=== PATIENT | female | born 1980 | race Caucasian/White ===

== ENCOUNTER 2017-09-16 16:46 | Emergency (ER) | payer OTHER, MEDICAID ==
[2017-09-16] MEDS ORDERED: IOPAMIDOL-300 100 ML VIAL IVP ONE ×2 (16:47→19:29)
[2017-09-16] MEDS ORDERED: HYDROcod/ACETAM 5/325 MG TABLET PO STA (17:30)
--- NOTE | 2017-09-16 17:32 | ED Physician Documentation ---
PD HPI HEADACHE - Stated complaint Stated Complaint: HEADACHE/CONFUSED/CANT WALK - Chief complaint Chief Complaint: Neuro - History obtained from History obtained from: Patient - History of Present Illness Timing - onset: Other (3 nights ago she got up from the table and was feeling dizzy and then passed out hitting the back of her head on the table. She has had increasing frontal headaches ever since with mild confusion and feeling like she is off balance and difficulty with certain tasks.) Review of Systems Constitutional: denies: Fever, Chills Nose: denies: Congestion, Epistaxis, Foreign Body GI: reports: Nausea. 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, Tubal ligation HEENT: Other - Present Medications Home Medications: Ambulatory Orders Medication Instructions Recorded Confirmed Amitriptyline HCl 225 mg PO DAILY 09/08/15 09/08/15 Levothyroxine [Synthroid] 100 mcg PO QDAC 09/08/15 09/08/15 Duloxetine HCl [Cymbalta] 60 mg PO 09/16/17 Risperidone [Risperdal] 2 mg PO 09/16/17 - Allergies Allergies/Adverse Reactions: Allergies Allergy/AdvReac Type Severity Reaction Status Date / Time No Known Drug Allergies Allergy Verified 09/08/15 20:17 - Social History Does the pt smoke?: Yes Smoking Status: Current some day smoker - Immunizations Immunizations are current?: Yes PD ED PE NORMAL - Vitals Vital signs reviewed: Yes - General General: Alert and oriented X 3, No acute distress - HEENT HEENT: PERRL, EOMI - Neck Neck: Supple, no meningeal sign, No bony TTP - Cardiac Cardiac: RRR, No murmur - Respiratory Respiratory: No respiratory distress, Clear bilaterally - Abdomen Abdomen: Normal bowel sounds, Soft, Non tender - Neuro Neuro: Alert and oriented X 3, Other (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 She is slightly diminished sensation on the right leg but not R arm) Eye Opening: Spontaneous Motor: Obeys Commands Verbal: Oriented GCS Score: 15 Results - Vitals Vitals: Vital Signs - 24 hr 09/16/17 16:50 Temperature 36.4 C L Heart Rate 111 H Respiratory 18 Rate Blood Pressure 143/93 H O2 Saturation 96 Oxygen O2 Source Room air - Labs Labs: Laboratory Tests 09/16/17 09/16/17 19:31 19:31 WBC 10.7 RBC 4.23 Hgb 11.3 L Hct 34.9 L MCV 82.4 MCH 26.6 L MCHC 32.3 RDW 14.9 Plt Count 285 MPV 8.2 Neut # Not Reportable Lymph # Not Reportable [place] # Not Reportable Eos # Not Reportable Baso # Not Reportable Absolute Nucleated RBC Not Reportable Total Counted 100 Band Neuts % (Manual) 10 Abnorm Lymph % (Manual) 0 Nucleated RBC % Not Reportable Neutrophils # (Manual) 6.3 Lymphocytes # (Manual) 2.5 Monocytes # (Manual) 0.4 Eosinophils # (Manual) 1.5 H Basophils # (Manual) 0.0 Differential Comment MANUAL DIFFERENTIAL WBC Morphology NORMAL APPEARANCE Platelet Estimate NORMAL (130-450,000) Platelet Morphology NORMAL APPEARANCE RBC Morph Micro Appear 2+ STOMATOCYTES Sodium 132 L Potassium 3.8 Chloride 99 L Carbon Dioxide 27 Anion Gap 6.0 BUN 9 Creatinine 0.7 Estimated GFR (MDRD) 94 Glucose 88 Calcium 8.9 Total Bilirubin 0.5 AST 17 ALT 13 Alkaline Phosphatase 135 H Total Protein 7.3 Albumin 4.2 Globulin 3.1 Albumin/Globulin Ratio 1.4 Lipase 18 L - Rads (name of study) CT Head Radiology: EMP read contemporaneously (normal) CTA Head anc neck Radiology: EMP read contemporaneously (no vascular abnormality, esophageal polyp ) PD MEDICAL DECISION MAKING - ED course ED course: 37-year-old woman with head injury a few days ago and now postconcussive symptoms. Head CT was negative. 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 She was able to walk, but seemed to need some support veering to the right. There was some anisocoria, left slightly greater than right. So CT angiography was done to rule out dissection and this was also negative except for the incidental finding in the esophagus which was discussed with her and her . I offered to speak with a neurologist with the understanding that the likely outcome of that conversation would be to admit her for an MRI in the morning. She wanted to go home and sleep in her own bed so she was encouraged to return tomorrow if having persistent neurologic issues. Departure - Departure Disposition: 01 Home, Self Care Clinical Impression: Head injury Qualifiers: Encounter type: initial encounter Qualified Code(s): S09.90XA - Unspecified injury of head, initial encounter Headache Qualifiers: Headache type: unspecified Headache chronicity pattern: acute headache Intractability: not intractable Qualified Code(s): R51 - Headache Condition: Good Record reviewed to determine appropriate education?: Yes Instructions: ED Head Injury Closed Comments: Return tomorrow morning for reevluation if weakness is persistent Talk with your doctor about upper endoscopy given apparent esophgeal polyp seen on CT of the neck.
--- NOTE | 2017-09-16 18:03 | CT Preliminary Report ---
Exam: CT HEAD W/O IMPRESSION: Normal head CT. [facility] SITE ID: [id number]
--- NOTE | 2017-09-16 18:07 | CT Report ---
EXAM: CT HEAD EXAM DATE: 09/16/2017 05:46 PM. CLINICAL HISTORY: Head injury patient presenting with imbalance, dizziness, confusion and vomiting. COMPARISON: None. TECHNIQUE: Multiaxial CT images were obtained from the foramen magnum to the vertex. Reformats: Coron al. IV contrast: None. In accordance with CT protocol optimization, one or more of the following dose reduction techniques w ere utilized for this exam: automated exposure control, adjustment of mA and/or KV based on patient s ize, or use of iterative reconstructive technique. FINDINGS: Parenchyma: No intraparenchymal hemorrhage. No evidence of mass, midline shift, or CT findings of inf arction. Hall-white differentiation is distinct. Extraaxial Spaces: Normal for age. No subdural or epidural collections identified. Ventricles: Normal in size and position. Sinuses and Orbits: Imaged paranasal sinuses, orbits, and mastoids show no significant abnormality. Bones: No evidence of fracture or calvarial defect. Other: None. IMPRESSION: Normal head CT. [facility] Referring Provider Line: [phone] SITE ID: [id number]
[2017-09-16] MEDS ORDERED: SUMAtriptan 6 MG/0.5 ML VIAL SUBQ STA (18:24)
[2017-09-16] MEDS ORDERED: GABAPENTIN 100 MG CAPSULE PO STA (18:24)
[2017-09-16] MEDS ORDERED: IOPAMIDOL-300 100 ML VIAL ONE (19:03)
[2017-09-16 19:39] LABS: BASOPHILS % (AUTO) 0.7 %; EOSINOPHILS % (AUTO) 19.7 %; HGB - HEMOGLOBIN 11.3 g/dL (12.0-16.0); LYMPHOCYTES % (AUTO) 19.5 %; MEAN CORPUSCULAR HEMOGLOBIN 26.6 pg (27.0-31.0); MEAN CORPUSCULAR HGB CONC 32.3 g/dL (32.0-36.0); MEAN CORPUSCULAR VOLUME 82.4 fL (81.0-99.0); MEAN PLATELET VOLUME 8.2 fL (7.9-10.8); MONOCYTES % (AUTO) 5.8 %; NEUTROPHILS % (AUTO) 54.3 %; PLT - PLATELET COUNT 285 10^3/uL (130-450); RED BLOOD COUNT 4.23 10^6/uL (4.20-5.40); RED CELL DISTRIBUTION WIDTH 14.9 % (12.0-15.0); WHITE BLOOD COUNT 10.7 x10^3/uL (4.8-10.8)
[2017-09-16 19:46] LABS: ABNORMAL LYMPHS % (MANUAL) 0 %
[2017-09-16 19:50] LABS: ALBUMIN 4.2 g/dL (3.2-5.5); ALBUMIN/GLOBULIN RATIO 1.4 (1.0-2.2); BILIRUBIN,TOTAL 0.5 mg/dL (0.2-1.0); CALCIUM 8.9 mg/dL (8.5-10.3); CREATININE 0.7 mg/dL (0.4-1.0); TOTAL PROTEIN 7.3 g/dL (6.7-8.2)
--- NOTE | 2017-09-16 20:07 | CT Preliminary Report ---
Exam: CT NECK ANGIO IMPRESSION: 1. Normal CT angiogram of the extracranial circulation in the neck. No significant atherosclerotic ch jie, calcification, stenosis, or dissection. 2. Nodular hyperdense focus in the proximal thoracic esophagus. This may represent a submucosal mass. This could be further evaluated with endoscopy or esophagram. 3. Soft tissue fullness in the posterior nasopharynx and lateral oral pharynx. This suggests lymphoid tissue in the adenoids and palatine tonsils. [facility] SITE ID: [id number]
--- NOTE | 2017-09-16 20:12 | CT Report ---
EXAM: CT ANGIOGRAM NECK EXAM DATE: 09/16/2017 07:26 PM. CLINICAL HISTORY: Head injury, right side weakness. Patient hit back of head 2 days ago. Right-sided weakness. Vision changes. Nausea with emesis. COMPARISON: CT scan and CT angiogram of the head 09/16/2017. TECHNIQUE: Routine axial helical imaging was performed from the skull base through the aortic arch. R econstructions: Routine multiplanar 3D MIP reconstructions. IV Contrast: 80 mL Isovue 300. Evaluation of arterial stenosis is based on a NASCET method of measurement. In accordance with CT protocol optimization, one or more of the following dose reduction techniques w ere utilized for this exam: automated exposure control, adjustment of mA and/or KV based on patient s ize, or use of iterative reconstructive technique. FINDINGS: The visualized aortic arch is unremarkable. 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 Great vessels off the arch are patent and unremarkable. Right Carotid: The common carotid, internal carotid, and external carotid arteries are widely patent. No dissection, significant atherosclerotic plaque, or calcification identified. Left Carotid: The common carotid, internal carotid, and external carotid arteries are widely patent. No dissection, significant atherosclerotic plaque, or calcification identified. Vertebrals: The vertebrobasilar system shows no stenoses. Intracranial Circulation: Normal. No stenoses or aneurysms of the visualized vessels. Other: A nodular focus of submucosal increased density/enhancement is seen in the proximal thoracic e sophagus. This measures approximately 8 x 4 mm in size. This could represent an enhancing submucosal nodule. This could be further evaluated with esophagram or endoscopy. The visualized upper lung zones are clear. The muscle and fascial planes of the neck are unremarkable. No lytic or blastic bony lesions are seen. No significant cervical spondylosis. The patient is noted to be edentulous. Anterior subluxation of the mandibular condyle is seen at the TMJ bilaterally. Soft tissue prominence is seen in the posterior nasopharynx and lateral oral pharynx, consistent with lymphoid tissue in the tonsils and adenoids. IMPRESSION: 1. Normal CT angiogram of the extracranial circulation in the neck. No significant atherosclerotic ch jie, calcification, stenosis, or dissection. 2. Nodular hyperdense focus in the proximal thoracic esophagus. This may represent a submucosal mass. This could be further evaluated with endoscopy or esophagram. 3. Soft tissue fullness in the posterior nasopharynx and lateral oral pharynx. This suggests lymphoid tissue in the adenoids and palatine tonsils. [facility] Referring Provider Line: [phone] SITE ID: [id number]
--- NOTE | 2017-09-16 20:12 | CT Preliminary Report ---
Exam: CT HEAD ANGIO IMPRESSION: CT Head with contrast: 1. No abnormal intracranial enhancement. 2. No acute abnormality. CTA Head: 1. Normal CTA of the head. No significant vascular stenosis, dissection, or aneurysm. [facility] SITE ID: [id number]
[2017-09-16 20:16] LABS: BAND NEUTROPHILS % (MANUAL) 10 %; EOSINOPHILS # (MANUAL) 1.5 10^3/uL (0-0.7); LYMPHOCYTES # (MANUAL) 2.5 10^3/uL (1.5-3.5); LYMPHOCYTES % (MANUAL) 23 %; MONOCYTES # (MANUAL) 0.4 10^3/uL (0.0-1.0); NEUTROPHILS # (MANUAL) 6.3 10^3/uL (1.5-6.6); NEUTROPHILS % (MANUAL) 49 %; PLATELET ESTIMATE, MANUAL NORMAL (130-450,000) (NORMAL); PLATELET MORPHOLOGY NORMAL APPEARANCE (NORMAL); RBC MORPHOLOGY (MULTIPLE) 2+ STOMATOCYTES (NORMAL)
[2017-09-16 20:17] LABS: DIFFERENTIAL COMMENT MANUAL DIFFERENTIAL
--- NOTE | 2017-09-16 20:27 | CT Report ---
EXAM: CT ANGIOGRAM HEAD. CT SCAN OF THE HEAD WITH CONTRAST. EXAM DATE: 09/16/2017 07:25 PM CLINICAL HISTORY: Head injury, right-side weakness. Patient hit back of head 2 days ago. Right-sided weakness. Vision changes. Nausea with emesis. COMPARISON: CT scan of the head without contrast earlier in the evening 09/16/2017. CT angiogram of t he neck 09/16/2017. TECHNIQUE: - CT Scan Head: Using a multidetector scanner, axial images were acquired from the foramen magnum to the skull vertex following contrast administration. - CT Angiogram: Using a multidetector scanner, high-resolution axial images were acquired from the sk ull base through vertex following rapid infusion of intravenous contrast. Reformats: Multiplanar MIP reformats were reconstructed. Nascet criteria used for stenosis measurement. IV Contrast: 80 mL Isovue 300. In accordance with CT protocol optimization, one or more of the following dose reduction techniques w ere utilized for this exam: automated exposure control, adjustment of mA and/or KV based on patient s ize, or use of iterative reconstructive technique. FINDINGS: POST-CONTRAST HEAD: No abnormal intracranial enhancement. No intracranial mass or hemorrhage. The ventricles, sulci, and cisterns are unremarkable. CT ANGIOGRAM HEAD: RIGHT: Internal Carotid artery: No evidence of dissection. No evidence of aneurysm along the intracranial IC A. Anterior Cerebral Artery: Patent without significant stenosis, aneurysm, or vascular malformation. Middle Cerebral Artery: Patent without significant stenosis, aneurysm, or vascular malformation. Posterior Cerebral Artery: Patent without significant stenosis, aneurysm, or vascular malformation. Posterior Communicating Artery: Patent. No aneurysm. Vertebral Artery: Patent without significant stenosis. No evidence of dissection. LEFT: Internal Carotid artery: No evidence of dissection. No evidence of aneurysm along the intracranial IC A. Anterior Cerebral Artery: Patent without significant stenosis, aneurysm, or vascular malformation. Middle Cerebral Artery: Patent without significant stenosis, aneurysm, or vascular malformation. Posterior Cerebral Artery: Patent without significant stenosis, aneurysm, or vascular malformation. Posterior Communicating Artery: Patent. No aneurysm. Vertebral Artery: Patent without significant stenosis. No evidence of dissection. CENTRAL: Anterior Communicating Artery: Patent. No aneurysm. Basilar Artery: Patent without significant stenosis. No aneurysm. DURAL VENOUS SINUSES AND MAJOR CENTRAL VEINS: Patent. IMPRESSION: CT Head With Contrast: 1. No abnormal intracranial enhancement. 2. No acute abnormality. CTA Head: 1. Normal CTA of the head. No significant vascular stenosis, dissection, or aneurysm. [facility] Referring Provider Line: [phone] SITE ID: [id number]
[2017-09-16] MEDS ORDERED: METOCLOPRAMIDE 10 MG/2 ML VIAL IVP STA (20:43)
[2017-09-16] MEDS ORDERED: diphenhydrAMINE INJ 50 MG/ML VIAL IVP STA (20:43)
[2017-09-16 21:24] VITALS: BP 129/87
== END 2017-09-16 21:17 | disposition home or self-care (01) ==
LOC: ED 16:46
DX: S09.90XA Unspecified injury of head, initial encounter (principal); W18.30XA Fall on same level, unspecified, initial encounter; W22.8XXA Striking against or struck by other objects, initial encounter; R51 Headache; E03.9 Hypothyroidism, unspecified; F17.200 Nicotine dependence, unspecified, uncomplicated
CPT/HCPCS: 36415; 70450; 70496; 70498; 80053; 83690; 85025; 96372; 96374; 99283; 99284; A9270; J1200; J2765; Q9967

== ENCOUNTER 2019-10-31 01:37 | Emergency (ER) | payer MEDICAID, OTHER ==
--- NOTE | 2019-10-31 01:49 | ED Physician Documentation ---
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 HEENT: Other - Present Medications Home Medications: Ambulatory Orders Medication Instructions Recorded Confirmed Amitriptyline HCl 225 mg PO DAILY 09/08/15 09/08/15 Levothyroxine [Synthroid] 100 mcg PO QDAC 09/08/15 09/08/15 Duloxetine HCl [Cymbalta] 60 mg PO 09/16/17 Risperidone [Risperdal] 2 mg PO 09/16/17 - Allergies Allergies/Adverse Reactions: Allergies Allergy/AdvReac Type Severity Reaction Status Date / Time No Known Drug Allergies Allergy Verified 09/08/15 20:17 - Social History Does the pt smoke?: Yes Smoking Status: Current some day smoker Does the pt drink ETOH?: No Does the pt have substance abuse?: No - Immunizations Immunizations are current?: Yes Results - Vitals Vitals: Oxygen O2 Source Room air
--- NOTE | 2019-10-31 01:59 | ED Physician Documentation ---
History of Present Illness - Stated complaint Stated Complaint: LT WRIST LAC/SI - History obtained from History obtained from: Patient - History of Present Illness Timing: Today Improved by: no ameliorating factors Worsened by: no exacerbating factors - Additonal information Additional information: c/o increasing anxiety throughout the day today, no specific inciting event. she says she has had similar episodes in the past which have been controlled with PRN lorazepam but todays episode has not responded to this medication. she used a piece of broken glass to lacerate her left wrist but she denies suicidal ideation on my HPI. Review of Systems Cardiac: reports: Reviewed and negative Skin: reports: Laceration (s) Musculoskeletal: denies: Extremity pain, Extremity swelling Neurologic: denies: Focal weakness, Numbness Psychiatric: reports: Anxiety. 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 HEENT: Other - Present Medications Home Medications: Ambulatory Orders Medication Instructions Recorded Confirmed Amitriptyline HCl 225 mg PO DAILY 09/08/15 09/08/15 Levothyroxine [Synthroid] 100 mcg PO QDAC 09/08/15 09/08/15 Duloxetine HCl [Cymbalta] 60 mg PO 09/16/17 Risperidone [Risperdal] 2 mg PO 09/16/17 - Allergies Allergies/Adverse Reactions: Allergies Allergy/AdvReac Type Severity Reaction Status Date / Time No Known Drug Allergies Allergy Verified 10/31/19 02:00 - Social History Does the pt smoke?: Yes Smoking Status: Current some day smoker Does the pt drink ETOH?: No Does the pt have substance abuse?: No - Immunizations Immunizations are current?: Yes PD ED PE NORMAL - Vitals Vital signs reviewed: Yes - General General: Alert and oriented X 3, Well developed/nourished, Other (appears anxious) - Cardiac Cardiac: No murmur - Respiratory Respiratory: No respiratory distress, Clear bilaterally - Neuro Neuro: Alert and oriented X 3, No motor deficit, No sensory deficit PD ED PE EXPANDED - Cardiac Cardiac: Tachy, Regular Rhythm - Extremities RONALDO UE/Hands Visual: 1 - laceration (superficial 1 cm linear laceration) - Psych Psych: Tearful, Anxious Results - Vitals Vitals: Vital Signs - 24 hr 10/31/19 10/31/19 03:39 03:42 Temperature 37.1 C Heart Rate 82 Respiratory 17 22 Rate Blood Pressure 151/106 H O2 Saturation 96 Oxygen O2 Source Room air PD MEDICAL DECISION MAKING - ED course Complexity details: re-evaluated patient, considered differential, d/w patient ED course: patient strongly denies suicidal intent on my HPI and declines SW and telepsych services. she says she is working with her PMD regarding her increasingly frequent anxiety episodes. given IM valium followed by PO lorazepam; patient reports decreased anxiety and requests discharge home. she says she feels safe going home and that she will call 911 if she becomes overwhelmed by anxiety or has thoughts of self-harm. Departure - Departure Disposition: 01 Home, Self Care Clinical Impression: Anxiety, Laceration of left wrist Condition: Good Instructions: ED Laceration Ext Skin Glue, ED Panic Attack Follow-Up: Miranda Chatman DO [Primary Care Provider] - Within 1 week Discharge Date/Time: 10/31/19 03:50
[2019-10-31] MEDS: diazePAM INJ 5 MG/ML SYRINGE IM STA (02:18)
[2019-10-31] MEDS: LORazepam 1 MG TABLET PO STA (03:23)
[2019-10-31 03:42] VITALS: BP 151/106
== END 2019-10-31 03:50 | disposition home or self-care (01) ==
LOC: ED 01:37
DX: F41.9 Anxiety disorder, unspecified (principal); S61.512A Laceration without foreign body of left wrist, initial encounter; X78.0XXA Intentional self-harm by sharp glass, initial encounter; F17.200 Nicotine dependence, unspecified, uncomplicated
CPT/HCPCS: 96372; 99283; 99284; J8499

== ENCOUNTER 2019-11-07 03:54 | Outpatient (CLI) | payer MEDICAID | END 2019-11-07 03:55 | disposition critical access hospital (66) | LOC: EMS 03:54 | PROVIDERS: ATTEND Surgery | DX: R45.851 Suicidal ideations (principal) | CPT/HCPCS: A0425; A0429; A0999 ==

== ENCOUNTER 2019-11-07 04:20 | Emergency (ER) | payer MEDICAID ==
--- NOTE | 2019-11-07 04:04 | ED Physician Documentation ---
History of Present Illness - Stated complaint Stated Complaint: SI - History obtained from History obtained from: Patient (Patient is a 39-year-old female who was brought in by EMS after she was drinking alcohol tonight and then made suicidal comments. Patient is here involuntary. Apparently she made some some threatening comments at home and 911 was called.) Review of Systems Unable to obtain: Intoxicated PD PAST MEDICAL HISTORY - Present Medications Home Medications: Ambulatory Orders Medication Instructions Recorded Confirmed Levothyroxine [Synthroid] 100 mcg PO QDAC 09/08/15 09/08/15 Duloxetine HCl [Cymbalta] 60 mg PO 09/16/17 Amitriptyline HCl 3 DAILY PM 11/07/19 QUEtiapine [SEROquel] 1 tab DAILY 11/07/19 11/07/19 oxyCODONE/ACET 5/325 [Percocet 5 Q6HR PRN 11/07/19 mg/325 mg] - Allergies Allergies/Adverse Reactions: Allergies Allergy/AdvReac Type Severity Reaction Status Date / Time No Known Drug Allergies Allergy Verified 10/31/19 02:00 PD ED PE NORMAL - Vitals Vital signs reviewed: Yes - General General: Alert and oriented X 3, No acute distress, Well developed/nourished - HEENT HEENT: PERRL, Moist mucous membranes - Neck Neck: Supple, no meningeal sign - Cardiac Cardiac: RRR, No murmur - Respiratory Respiratory: Clear bilaterally - Abdomen Abdomen: Normal bowel sounds, Soft, Non tender, Non distended - Derm Derm: Warm and dry - Extremities Extremities: No deformity - Neuro Neuro: Alert and oriented X 3 - Psych Psych: Other (Patient admits to drinking alcohol, Appears intoxicated.Unable to accurately assess as the patient is currently intoxicated.) Results - Vitals Vitals: Vital Signs - 24 hr 11/07/19 11/07/19 11/07/19 04:28 08:58 12:48 Temperature 36.9 C 36.5 C Heart Rate 94 86 93 Respiratory 18 17 23 Rate Blood Pressure 127/76 142/92 H 128/83 H O2 Saturation 94 99 94 11/07/19 11/07/19 13:44 17:22 Temperature 36.5 C Heart Rate 87 93 Respiratory 20 20 Rate Blood Pressure 166/122 H 133/73 H O2 Saturation 95 96 Oxygen O2 Source Room air - Labs Labs: Laboratory Tests 11/07/19 11/07/19 11/07/19 04:45 04:45 04:50 WBC 8.9 RBC 4.40 Hgb 12.8 Hct 40.6 MCV 92.3 MCH 29.1 MCHC 31.5 L RDW 14.9 Plt Count 307 MPV 10.8 Neut # (Auto) 5.7 Lymph # (Auto) 1.9 [place] # (Auto) 0.6 Eos # (Auto) 0.6 Baso # (Auto) 0.1 Absolute Nucleated RBC 0.00 Nucleated RBC % 0.0 Sodium Potassium Chloride Carbon Dioxide Anion Gap BUN Creatinine Estimated GFR (MDRD) Glucose Calcium Total Bilirubin AST ALT Alkaline Phosphatase Total Protein Albumin Globulin Albumin/Globulin Ratio Lipase Urine Color YELLOW Urine Clarity CLEAR Urine pH 6.0 Ur Specific [place] 1.020 1.020 Urine Protein NEGATIVE Urine Glucose (UA) NEGATIVE Urine Ketones NEGATIVE Urine Occult Blood NEGATIVE Urine Nitrite NEGATIVE Urine Bilirubin NEGATIVE Urine Urobilinogen 0.2 (NORMAL) Ur Leukocyte Esterase NEGATIVE Ur Microscopic Review NOT INDICATED Urine Culture Comments NOT INDICATED Urine HCG, Qual NEGATIVE Salicylates Urine Opiates Screen NEGATIVE Ur Oxycodone Screen NEGATIVE Urine Methadone Screen NEGATIVE Ur Propoxyphene Screen NEGATIVE Acetaminophen Ur Barbiturates Screen NEGATIVE Ur Tricyclics Screen POSITIVE H Ur Phencyclidine Scrn NEGATIVE Ur Amphetamine Screen NEGATIVE U Methamphetamines Scrn NEGATIVE U Benzodiazepines Scrn POSITIVE H Urine Cocaine Screen NEGATIVE U Cannabinoids Screen POSITIVE H Ethyl Alcohol 11/07/19 11/07/19 04:50 04:50 WBC RBC Hgb Hct MCV MCH MCHC RDW Plt Count MPV Neut # (Auto) Lymph # (Auto) [place] # (Auto) Eos # (Auto) Baso # (Auto) Absolute Nucleated RBC Nucleated RBC % Sodium 139 Potassium 3.3 L Chloride 100 L Carbon Dioxide 28 Anion Gap 11.0 BUN 11 Creatinine 0.7 Estimated GFR (MDRD) 93 Glucose 121 H Calcium 9.4 Total Bilirubin 0.4 AST 27 ALT 27 Alkaline Phosphatase 130 H Total Protein 7.2 Albumin 4.0 Globulin 3.2 Albumin/Globulin Ratio 1.3 Lipase 38 Urine Color Urine Clarity Urine pH Ur Specific [place] Urine Protein Urine Glucose (UA) Urine Ketones Urine Occult Blood Urine Nitrite Urine Bilirubin Urine Urobilinogen Ur Leukocyte Esterase Ur Microscopic Review Urine Culture Comments Urine HCG, Qual Salicylates < 6.0 Urine Opiates Screen Ur Oxycodone Screen Urine Methadone Screen Ur Propoxyphene Screen Acetaminophen < 10 L Ur Barbiturates Screen Ur Tricyclics Screen Ur Phencyclidine Scrn Ur Amphetamine Screen U Methamphetamines Scrn U Benzodiazepines Scrn Urine Cocaine Screen U Cannabinoids Screen Ethyl Alcohol 51.7 PD MEDICAL DECISION MAKING - ED course Complexity details: reviewed results, re-evaluated patient, considered differential (Alcohol intoxication, depression, suicidal ideation. patient is involuntary, patient will be medically cleared and the DMHP will be consulted.), d/w patient, other (patient signed out at shift change to dr. mallory haji pending social work evaluation.) Departure - Departure Disposition: 65 Psych Hosp/Unit DC/Xfer Clinical Impression: Depression Qualifiers: Depression Type: unspecified Qualified Code(s): F32.9 - Major depressive disorder, single episode, unspecified Condition: Stable Discharge Date/Time: 11/07/19 17:24
[2019-11-07 04:59] LABS: MUDS CUTOFF CONCENTRATIONS CUTOFF CONC BELOW:
[2019-11-07 05:00] LABS: BASOPHILS # (AUTO) 0.1 10^3/uL (0.0-0.1); BASOPHILS % (AUTO) 0.8 %; EOSINOPHILS # (AUTO) 0.6 10^3/uL (0.0-0.7); EOSINOPHILS % (AUTO) 6.9 %; HGB - HEMOGLOBIN 12.8 g/dL (12.0-16.0); LYMPHOCYTES # (AUTO) 1.9 10^3/uL (1.5-3.5); MEAN CORPUSCULAR HEMOGLOBIN 29.1 pg (27.0-31.0); MEAN CORPUSCULAR HGB CONC 31.5 g/dL (32.0-36.0); MEAN CORPUSCULAR VOLUME 92.3 fL (81.0-99.0); MEAN PLATELET VOLUME 10.8 fL (7.9-10.8); MONOCYTES # (AUTO) 0.6 10^3/uL (0.0-1.0); MONOCYTES % (AUTO) 6.5 %; NEUTROPHILS # (AUTO) 5.7 10^3/uL (1.5-6.6); NEUTROPHILS % (AUTO) 64.5 %; PLT - PLATELET COUNT 307 10^3/uL (130-450); RED CELL DISTRIBUTION WIDTH 14.9 % (12.0-15.0); WHITE BLOOD COUNT 8.9 x10^3/uL (4.8-10.8)
[2019-11-07 05:04] LABS: BILIRUBIN,URINE NEGATIVE (NEGATIVE); GLUCOSE, URINE (UA) NEGATIVE (NEGATIVE); KETONES,URINE (UA) NEGATIVE (NEGATIVE); LEUKOCYTE ESTERASE, URINE NEGATIVE (NEGATIVE); NITRITE,URINE NEGATIVE (NEGATIVE); OCCULT BLOOD,URINE NEGATIVE (NEGATIVE); PROTEIN,URINE NEGATIVE (NEGATIVE); UROBILINOGEN,URINE 0.2 (NORMAL) E.U./dL (NORMAL)
[2019-11-07 05:06] LABS: CLARITY,URINE CLEAR (CLEAR); HCG UR QUAL NEGATIVE
[2019-11-07 05:14] LABS: ACETAMINOPHEN < 10 ug/mL (10-30); ALBUMIN/GLOBULIN RATIO 1.3 (1.0-2.2); ALKALINE PHOSPHATASE 130 IU/L (42-121); ALT ALANINE AMINOTRANSFERASE 27 IU/L (10-60); AST ASPARTATE AMINOTRANSFERASE 27 IU/L (10-42); BILIRUBIN,TOTAL 0.4 mg/dL (0.2-1.0); BUN - BLOOD UREA NITROGEN 11 mg/dL (6-20); CALCIUM 9.4 mg/dL (8.5-10.3); CARBON DIOXIDE - CO2 28 mmol/L (21-32); CHLORIDE 100 mmol/L (101-111); CREATININE 0.7 mg/dL (0.4-1.0); GLUCOSE 121 mg/dL (70-100); LIPASE 38 U/L (22-51); SALICYLATE < 6.0 mg/dL; SODIUM 139 mmol/L (135-145); TOTAL PROTEIN 7.2 g/dL (6.7-8.2)
[2019-11-07 05:16] LABS: AMPHETAMINE SCREEN,URINE NEGATIVE (NEGATIVE); BENZODIAZEPINES SCREEN, URINE POSITIVE (NEGATIVE); COCAINE SCREEN URINE NEGATIVE (NEGATIVE); METHADONE SCREEN, URINE NEGATIVE (NEGATIVE); METHAMPHETAMINES SCREEN, URINE NEGATIVE (NEGATIVE); OPIATE SCREEN, URINE NEGATIVE (NEGATIVE); OXYCODONE SCREEN, URINE NEGATIVE (NEGATIVE); PROPOXYPHENE SCREEN, URINE NEGATIVE (NEGATIVE); TRICYCLIC ANTIDEPRESSANT,URINE POSITIVE (NEGATIVE)
[2019-11-07] MEDS ORDERED: LORazepam 1 MG TABLET PO STA (13:59)
[2019-11-07] MEDS ORDERED: NICOTINE 21 MG PATCH TOP STA (15:58)
[2019-11-07 17:23] VITALS: BP 133/73
== END 2019-11-07 17:24 ==
LOC: EDUNIT# → ED 04:20
DX: R45.851 Suicidal ideations (principal); F10.129 Alcohol abuse with intoxication, unspecified; F32.9 Major depressive disorder, single episode, unspecified
CPT/HCPCS: 36415; 80053; 80306; 80307; 80320; 80329; 81003; 81025; 83690; 85025; 99281; 99285; A9270; J8499; 81001; 87086

== ENCOUNTER 2019-12-23 02:56 | Outpatient (CLI) | payer MEDICAID | END 2019-12-23 02:57 | disposition short-term general hospital (02) | LOC: EMS 02:56 | PROVIDERS: ATTEND Surgery | DX: R41.82 Altered mental status, unspecified (principal); Z72.89 Other problems related to lifestyle | CPT/HCPCS: A0425; A0427; A0999 ==

== ENCOUNTER 2020-04-12 16:26 | Outpatient (CLI) | payer MEDICAID | END 2020-04-12 16:27 | disposition short-term general hospital (02) | LOC: EMS 16:26 | PROVIDERS: ATTEND Surgery | DX: R55 Syncope and collapse (principal); M54.2 Cervicalgia; M54.5 Low back pain | CPT/HCPCS: A0425; A0427; A0999 ==

== ENCOUNTER 2020-04-13 23:53 | Outpatient (CLI) | payer MEDICAID | END 2020-04-13 23:54 | disposition short-term general hospital (02) | LOC: EMS 23:53 | PROVIDERS: ATTEND Surgery | DX: R06.00 Dyspnea, unspecified (principal) | CPT/HCPCS: A0425; A0427; A0999 ==

== ENCOUNTER 2020-05-07 21:26 | Emergency (ER) | payer MEDICAID ==
[2020-05-07] MEDS ORDERED: KETOROLAC 30 MG/ML VIAL IM STA (21:49)
[2020-05-07] MEDS ORDERED: CYCLOBENZAPRINE 10 MG TABLET PO STA (21:49)
--- NOTE | 2020-05-07 21:53 | ED Physician Documentation ---
History of Present Illness - Stated complaint Stated Complaint: GLF/CAN'T WALK - Chief complaint Chief Complaint: Trauma Ext - History obtained from History obtained from: Patient - Additonal information Additional information: Pt presents w left hamstring pain after a slip and fall yesterday. She states she essentially inadvertently "did the splits" and her left leg stretched out to the side. She was able to get up and ambulate but today pt states pain is so severe she can't walk. She states anytime she moves she has shooting pain down the left hamstring. Went to the chiropractor today and "my back was all twisted up" and they apparently told her there was nothing they could do. Pt is on a chronic percocet and lyrica regimen prescribed by her PCP. She has a hx of lumbosacral radiculopathy/chronic back pain. No fever, saddle anesthesia, change in bowel/bladder, foot drop. Review of Systems Constitutional: reports: Reviewed and negative Cardiac: reports: Reviewed and negative Respiratory: reports: Reviewed and negative GI: reports: Reviewed and negative : reports: Reviewed and negative Skin: reports: Reviewed and negative Musculoskeletal: reports: Back pain, Extremity pain, Pain with weight bearing. 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 ADMINISTRATOR: section, Tubal ligation HEENT: Other - Present Medications Home Medications: Ambulatory Orders Medication Instructions Recorded Confirmed Levothyroxine [Synthroid] 100 mcg PO QDAC 09/08/15 05/07/20 Duloxetine HCl [Cymbalta] 60 mg PO 09/16/17 Amitriptyline HCl 75 mg PO DAILY PM 11/07/19 05/07/20 QUEtiapine [SEROquel] 100 mg PO DAILY 11/07/19 05/07/20 oxyCODONE/ACET 5/325 [Percocet 5 Q6HR PRN 11/07/19 mg/325 mg] QUEtiapine [SEROquel] 25 mg PO DAILY 05/07/20 05/07/20 - Allergies Allergies/Adverse Reactions: Allergies Allergy/AdvReac Type Severity Reaction Status Date / Time No Known Drug Allergies Allergy Verified 05/07/20 21:37 - Social History Does the pt smoke?: Yes Smoking Status: Current every day smoker Does the pt drink ETOH?: Yes Does the pt have substance abuse?: No - Immunizations Immunizations are current?: Yes - POLST Patient has POLST: No PD ED PE NORMAL - Vitals Vital signs reviewed: Yes - General General: Alert and oriented X 3, Well developed/nourished, Other (tearful) - HEENT HEENT: Atraumatic, Moist mucous membranes - Neck Neck: Supple, no meningeal sign, No bony TTP - Cardiac Cardiac: RRR, No murmur, No gallop, No rub - Respiratory Respiratory: No respiratory distress, Clear bilaterally - Abdomen Abdomen: Normal bowel sounds, Soft, Non tender, Non distended - Back Back: No CVA TTP, No spinal TTP - Derm Derm: Normal color, Warm and dry, No rash - Extremities Extremities: No deformity, No edema, No calf tenderness / cord, Other (tender left hamstring, no swelling or redness, no contusion. full lower ext rom. ) - Neuro Neuro: Alert and oriented X 3 Eye Opening: Spontaneous Motor: Obeys Commands Verbal: Oriented GCS Score: 15 - Psych Psych: Normal mood, Normal affect Results - Vitals Vitals: Vital Signs - 24 hr 05/07/20 21:33 Temperature 36.9 C Heart Rate 99 Respiratory 24 Rate Blood Pressure 129/99 H O2 Saturation 100 Oxygen O2 Source Room air PD MEDICAL DECISION MAKING - ED course Complexity details: considered differential, d/w patient ED course: Pt presented with left upper leg pain after a slip and fall. She had no bony tenderness or deformity on exam. There was no erythema, swelling, or contusion. I suspect she has a mild tear of the left hamstring. She has no new back pain or signs of cauda equina as sx are localized to the left hamstring. I advised pt to use nsaids and prn flexeril, but use cautiously due to chronic narcotic pain regimen. A compression sleeve and ice or heat can be helpful. Departure - Departure Clinical Impression: Left hamstring muscle strain Qualifiers: Encounter type: initial encounter Qualified Code(s): S76.312A - Strain of muscle, fascia and tendon of the posterior muscle group at thigh level, left thigh, initial encounter Condition: Good Instructions: ED Strain Muscle Ext
[2020-05-07 22:20] VITALS: BP 130/92
== END 2020-05-07 22:28 | disposition home or self-care (01) ==
LOC: ED 21:26
DX: S76.312A Strain of muscle, fascia and tendon of the posterior muscle group at thigh level, left thigh, initial encounter (principal); W18.31XA Fall on same level due to stepping on an object, initial encounter; F17.200 Nicotine dependence, unspecified, uncomplicated
CPT/HCPCS: 96372; 99283; 99284; A9270

== ENCOUNTER 2022-04-17 05:21 | Outpatient (CLI) | payer MEDICAID | END 2022-04-17 23:59 | disposition EMS.NT | LOC: EMS 05:21 | DX: R11.2 Nausea with vomiting, unspecified (principal); R19.7 Diarrhea, unspecified ==

== ENCOUNTER 2023-08-29 08:00 | Outpatient (CLI) | payer MEDICAID | END 2023-08-29 23:59 | disposition home or self-care (01) | LOC: LAB.N 08:00 | PROVIDERS: ATTEND Physician Assistant | DX: R30.0 Dysuria (principal) | CPT/HCPCS: 36415; 87077; 87086; 87181 ==